=== PATIENT | female | born 1970 | race Caucasian/White ===

== ENCOUNTER 2017-10-04 08:18 | Day surgery (SDC) | payer OTHER ==
[~2017-10-04] VITALS: Ht 149.9 cm; Wt 86.2 kg
[~2017-10-04 08:18] MED LIST: CEFAZOLIN SOD 1 GM in D5W 50 ML IV ONE
[2017-10-04] MEDS ORDERED: fentaNYL CITRATE/PF 100 MCG/2 ML AMP IVP PRN ×2 (11:45)
[2017-10-04] MEDS ORDERED: ONDANSETRON HCL 4 MG/2 ML VIAL IVP PRN ×2 (11:45→12:00)
[2017-10-04] MEDS ORDERED: NS IRRIG SOLN 1000 ML IR ONE (11:55)
[2017-10-04] MEDS ORDERED: SEVOFLURANE 15 MIN GAS INH ONE (11:55)
[2017-10-04] MEDS ORDERED: MIDAZOLAM HCL 5 MG/ML VIAL (VERSED) IV ONE (11:55)
[2017-10-04] MEDS ORDERED: LR 1,000 ML IV.SOLN IV ONE (11:55)
[2017-10-04] MEDS ORDERED: PROPOFOL 200MG/ 20ML VIAL (DIPRIVAN) IV ONE (11:55)
[2017-10-04] MEDS ORDERED: OXYCODONE/ACETAMINOPHEN 5-325 TABLET PO PRN (12:00)
[2017-10-04] MEDS ORDERED: HYDROcodone/ACETAMIN 5-325 MG TAB (NORCO/ VICODIN) PO PRN (12:00)
[2017-10-04 12:40] VITALS: BP_SYST 113
== END 2017-10-04 13:33 | disposition home or self-care (01) ==
LOC: SMU 08:18 → SDS 08:18 → EDUNIT# 10:00 → SDS 13:33
PROVIDERS: ATTEND Specialist
DX: N93.8 Other specified abnormal uterine and vaginal bleeding (principal); Z68.38 Body mass index [BMI] 38.0-38.9, adult; Z79.899 Other long term (current) drug therapy
CPT/HCPCS: 58558; 88305; J0690; J2250; J2704; J7060; J7120

== ENCOUNTER 2018-03-07 06:30 | Day surgery (SDC) | payer OTHER ==
[~2018-03-07] VITALS: Ht 149.9 cm; Wt 83.9 kg
[2018-03-07] MEDS ORDERED: CEFAZOLIN SOD 1 GM/ ISO 50 ML PREMIX IV ONE (07:00)
[2018-03-07] MEDS ORDERED: SEVOFLURANE 15 MIN GAS INH ONE (08:00)
[2018-03-07] MEDS ORDERED: NS 1000 ML IV.SOLN IV ONE (08:00)
[2018-03-07] MEDS ORDERED: NS IRRIG SOLN 1000 ML IR ONE (08:00)
[2018-03-07] MEDS ORDERED: ROPIVACAINE 40 MG/20 ML AMP EP ONE (08:00)
[2018-03-07] MEDS ORDERED: BUPIVACAINE /PF 0.5% 30 ML VIAL INJ ONE (08:00)
[2018-03-07] MEDS ORDERED: ROPIVACAINE 0.2% (NAROPIN) PF SOLUTION 100 ML BOTTLE EP ONE (08:00)
[2018-03-07] MEDS ORDERED: ROCURONIUM BROMIDE 10 MG/ML (ZEMURON) IV ONE (08:00)
[2018-03-07] MEDS ORDERED: BUPIVACAINE /EPINEPHRINE/PF 0.5% 30 ML VIAL INJ ONE (08:00)
[2018-03-07] MEDS ORDERED: NEOSTIGMINE METHYLSULFATE 1 MG/ML, 10 ML VIAL IVP ONE (08:00)
[2018-03-07] MEDS ORDERED: PROPOFOL 200MG/ 20ML VIAL (DIPRIVAN) IV ONE (08:00)
[2018-03-07] MEDS ORDERED: ONDANSETRON HCL 4 MG/2 ML VIAL IVP ONE (08:00)
[2018-03-07] MEDS ORDERED: KETOROLAC TROMETHAMINE 30 MG VIAL IVP ONE ×2 (08:00→12:30)
[2018-03-07] MEDS ORDERED: LR 1,000 ML IV.SOLN IV ONE (08:00)
[2018-03-07] MEDS ORDERED: fentaNYL CITRATE 250 MCG/5 ML AMP IV ONE (08:00)
[2018-03-07] MEDS ORDERED: MIDAZOLAM HCL 5 MG/5 ML VIAL IVP ONE (08:00)
[2018-03-07] MEDS ORDERED: GLYCOPYRROLATE 0.2 MG/ML VIAL IJ ONE (08:00)
[2018-03-07] MEDS ORDERED: LR 1,000 ML IV SCH (08:58)
[2018-03-07] MEDS ORDERED: METOCLOPRAMIDE HCL 10 MG/2 ML VIAL IVP PRN (09:00)
[2018-03-07] MEDS ORDERED: MORPHINE 4 MG/ML INJ. SYRINGE IVP PRN ×3 (09:00)
[2018-03-07] MEDS ORDERED: MORPHINE 4 MG/ML INJ. SYRINGE ONE (10:50)
[2018-03-07] MEDS ORDERED: KETOROLAC TROMETHAMINE 30 MG VIAL ONE (11:37)
[2018-03-07] MEDS ORDERED: HYDROcodone/ACETAMIN 5-325 MG TAB (NORCO/ VICODIN) ONE (11:43)
[2018-03-07] MEDS ORDERED: ONDANSETRON HCL 4 MG/2 ML VIAL IVP PRN (12:00)
[2018-03-07] MEDS ORDERED: HYDROcodone/ACETAMIN 5-325 MG TAB (NORCO/ VICODIN) PO PRN (12:00)
[2018-03-07] MEDS ORDERED: OXYCODONE/ACETAMINOPHEN 5-325 TABLET PO PRN ×2 (12:00)
[2018-03-07] MEDS ORDERED: CEFAZOLIN 1 GM IVPB PREMIX 50 ML IV ONE (13:00)
[2018-03-07 13:36] VITALS: BP_SYST 125
== END 2018-03-07 13:30 | disposition home or self-care (01) ==
LOC: SDS 06:30 → SMU 06:30 → SDS 13:30
PROVIDERS: ATTEND Specialist
DX: N80.0 Endometriosis of uterus (principal); N83.8 Other noninflammatory disorders of ovary, fallopian tube and broad ligament; D25.9 Leiomyoma of uterus, unspecified; D64.9 Anemia, unspecified; L71.9 Rosacea, unspecified; E66.01 Morbid (severe) obesity due to excess calories; Z79.899 Other long term (current) drug therapy; Z98.890 Other specified postprocedural states; Z68.38 Body mass index [BMI] 38.0-38.9, adult
CPT/HCPCS: 58552; 88307; C1727; J0690; J1885; J2250; J2270; J2405; J2704; J2710; J2795 ×2; J3010; J3490 ×2; J7030; J7120; E0190